=== PATIENT | male | born 1955 | race Caucasian/White ===

== ENCOUNTER 2018-03-19 20:50 | Inpatient (IN) ==
[2018-03-19 21:42] LABS: Basophils % 0.4 % (0.0-0.8); Eosinophils # 0.2 10*3/uL (0.0-0.87); Eosinophils % 2.6 % (0.00-10.9); Hematocrit 38.7 VOL% (42.0-52.0); Hemoglobin 12.8 GM/DL (14.0-18.0); Immature Granulocytes % 0.6 %; Immature Granulocytes Absolute 0.05 #; Lymphocytes # 1.4 10*3/uL (1.4-4.0); Lymphocytes % 15.1 % (21.2-54.2); Mean Corpuscular HGB Conc 33.1 GM/DL (32-36); Mean Corpuscular Hemoglobin 30 PG (27-34); Mean Corpuscular Volume 91.7 FL (87-102); Mean Platelet Volume 11.6 FL (9.6-12.0); Monocytes # 0.9 10*3/uL (0.11-0.8); Monocytes % 10.2 % (1.7-12.7); Neutrophils # 6.4 10*3/uL (1.4-7.4); Neutrophils % 71.1 % (38.7-73.9); Platelet Count 205 T/CUMM (130-400); Red Blood Count 4.22 MC/CUMM (3.8-5.5); Red Cell Distribution Width 13.2 % (9.3-17.3)
[2018-03-19 21:47] LABS: INR 1.1; PT Patient Result 11.3 SECS; Partial Thromboplastin Time 26.4 SECS (0-40)
[2018-03-19 22:01] LABS: Albumin 3.1 G/DL (3.4-5.0); Bilirubin,Total 0.7 MG/DL (0.2-1.0); Calcium 8.3 MG/DL (8.5-10.1); Osmolality,Calculated 282.3 MOS/KG (273-304); Potassium 3.7 MMOL/L (3.5-5.1); Thyroid Stimulating Hormone 4.72 uIU/ml (0.358-3.74); Total Protein 6.7 G/DL (6.4-8.3)
[2018-03-19 22:04] LABS: Troponin I Only 0.06 NG/ML (0.00-0.045)
[2018-03-19] MEDS ORDERED: LEVALBUTEROL 1.25 MG/3 ML NEB RESP TX STA (22:40)
[2018-03-19] MEDS ORDERED: SODIUM CHLORIDE 0.9% 1,000 ML IV STA (22:41)
[2018-03-19] MEDS ORDERED: cefTRIAXone 1,000 MG in SODIUM CHLORIDE 0.9% 100 ML IV STA (22:53)
[2018-03-19] MEDS ORDERED: LEVOFLOXACIN INJ 750 MG in PREMIX 1 EACH IV STA (23:24)
[2018-03-20] MEDS ORDERED: ENOXAPARIN 120 MG/0.8 ML SYRINGE SUBCUT STA (02:06)
[2018-03-20] MEDS ORDERED: ALBUTEROL/IPRATROPIUM 3 ML NEB RESP TX STA (02:13)
[2018-03-20] MEDS ORDERED: DILTIAZEM 100 MG VIAL.ADD IV ONE (02:19)
[2018-03-20] MEDS: DILTIAZEM INJ 100 MG in SODIUM CHLORIDE 0.9% 100 ML IV SCH (02:20)
[2018-03-20] MEDS ORDERED: SODIUM CHLORIDE 0.9% 100 ML IV ONE (02:21)
[2018-03-20] MEDS ORDERED: guaiFENesin/DM ER 600-30 MG TABLET PO PRN (03:21)
[2018-03-20] MEDS ORDERED: ONDANSETRON 4 MG/2 ML VIAL IV PRN (03:21)
[2018-03-20] MEDS ORDERED: ACETAMINOPHEN 325 MG TABLET PO PRN (03:21)
[2018-03-20] MEDS ORDERED: SODIUM CHLORIDE 0.45% 1,000 ML IV SCH (03:30)
[2018-03-20] MEDS ORDERED: DEXTROSE 50% 25 GM/50 ML VIAL IV PRN (05:01)
[2018-03-20] MEDS ORDERED: GLUCAGON 1 MG VIAL IM PRN (05:01)
[2018-03-20] MEDS: AZITHROMYCIN INJ 500 MG in SODIUM CHLORIDE 0.9% 250 ML IV SCH (06:04)
[2018-03-20 07:02] LABS: Basophils % 0.5 % (0.0-0.8); Eosinophils # 0.2 10*3/uL (0.0-0.87); Eosinophils % 2.6 % (0.00-10.9); Hematocrit 38.9 VOL% (42.0-52.0); Hemoglobin 12.7 GM/DL (14.0-18.0); Immature Granulocytes % 0.4 %; Immature Granulocytes Absolute 0.03 #; Lymphocytes # 1.3 10*3/uL (1.4-4.0); Lymphocytes % 16.3 % (21.2-54.2); Mean Corpuscular HGB Conc 32.6 GM/DL (32-36); Mean Corpuscular Hemoglobin 30 PG (27-34); Mean Corpuscular Volume 92.4 FL (87-102); Mean Platelet Volume 11.2 FL (9.6-12.0); Monocytes # 0.8 10*3/uL (0.11-0.8); Monocytes % 10.6 % (1.7-12.7); Neutrophils # 5.4 10*3/uL (1.4-7.4); Neutrophils % 69.6 % (38.7-73.9); Platelet Count 194 T/CUMM (130-400); Red Blood Count 4.21 MC/CUMM (3.8-5.5); Red Cell Distribution Width 13.2 % (9.3-17.3); White Blood Count 7.8 T/CUMM (4-12)
[2018-03-20] MEDS: ALBUTEROL 2.5 MG/3 ML NEB RESP TX SCH ×2 (07:18→12:24)
[2018-03-20] MEDS: IPRATROPIUM 500 MCG/2.5 ML NEB RESP TX SCH ×2 (07:18→12:23)
[2018-03-20] MEDS ORDERED: LORazepam 2 MG/1 ML VIAL IV ONE (07:25)
[2018-03-20] MEDS ORDERED: ALPRAZolam 0.5 MG TABLET PO PRN (07:26)
[2018-03-20 07:31] LABS: Osmolality,Calculated 277.4 MOS/KG (273-304); Potassium 3.6 MMOL/L (3.5-5.1)
[2018-03-20] MEDS: INSULIN LISPRO 100 UNIT/ML SUBCUT SCH ×2 (08:50→21:19)
[2018-03-20] MEDS: LISINOPRIL 10 MG TABLET PO SCH ×2 (08:50→21:21)
[2018-03-20] MEDS: levETIRAcetam 500 MG TABLET PO SCH ×2 (08:51→21:20)
[2018-03-20] MEDS: APIXABAN 5 MG TABLET PO SCH ×2 (08:51→21:21)
[2018-03-20] MEDS: BUDESONIDE/FORMOTEROL 160-4.5 INHALER 6 GM INH SCH ×2 (08:55→21:21)
[2018-03-20] MEDS: FLUTICASONE 50 MCG NASAL SPRAY 16 GM BOTTLE BOTH NARES SCH (08:55)
[2018-03-20] MEDS ORDERED: [UNRECOGNIZED DRUG - OTHER] PO SCH (09:00)
[2018-03-20] MEDS ORDERED: DEXTROSE PO SCH (09:00)
[2018-03-20] MEDS ORDERED: METOPROLOL SUCCINATE XL 50 MG TABLET PO SCH (09:00)
[2018-03-20] MEDS ORDERED: DILTIAZEM INJ 100 MG in SODIUM CHLORIDE 0.9% 100 ML IV SCH (10:30)
[2018-03-20] MEDS ORDERED: FUROSEMIDE 40 MG/4 ML VIAL IV ONE (10:49)
[2018-03-20] MEDS: ASPIRIN EC 81 MG TABLET PO SCH (10:57)
[2018-03-20] MEDS ORDERED: DIGOXIN 0.5 MG/2 ML AMP IV ONE ×2 (12:00→18:00)
[2018-03-20] MEDS: ALBUTEROL/IPRATROPIUM 3 ML NEB RESP TX SCH ×2 (14:12→19:19)
[2018-03-20] MEDS: FUROSEMIDE 40 MG/4 ML VIAL IV SCH (15:54)
[2018-03-20] MEDS ORDERED: ATORVASTATIN 20 MG TABLET PO SCH (21:00)
[2018-03-20] MEDS ORDERED: INSULIN GLARGINE 100 UNIT/ML SUBCUT SCH (21:00)
[2018-03-20] MEDS ORDERED: LATANOPROST 0.005% OPH SOLN 2.5 ML BOTTLE BOTH EYES SCH (21:00)
[2018-03-20] MEDS ORDERED: cefTRIAXone 2,000 MG in SYRINGE 1 EACH IV SCH (23:00)
[2018-03-21] MEDS: DILTIAZEM INJ 100 MG in SODIUM CHLORIDE 0.9% 100 ML IV SCH (05:01)
[2018-03-21] MEDS: AZITHROMYCIN INJ 500 MG in SODIUM CHLORIDE 0.9% 250 ML IV SCH (07:01)
[2018-03-21] MEDS: ALBUTEROL/IPRATROPIUM 3 ML NEB RESP TX SCH ×2 (07:02→10:50)
[2018-03-21] MEDS: FUROSEMIDE 40 MG/4 ML VIAL IV SCH (09:04)
[2018-03-21] MEDS: APIXABAN 5 MG TABLET PO SCH (09:04)
[2018-03-21] MEDS: DIGOXIN 0.125 MG TABLET PO SCH ×2 (09:04→14:02)
[2018-03-21] MEDS: INSULIN LISPRO 100 UNIT/ML SUBCUT SCH (09:04)
[2018-03-21] MEDS: ASPIRIN EC 81 MG TABLET PO SCH (09:04)
[2018-03-21] MEDS: LISINOPRIL 10 MG TABLET PO SCH (09:04)
[2018-03-21] MEDS: BUDESONIDE/FORMOTEROL 160-4.5 INHALER 6 GM INH SCH (09:09)
[2018-03-21] MEDS: FLUTICASONE 50 MCG NASAL SPRAY 16 GM BOTTLE BOTH NARES SCH (09:09)
[2018-03-21] MEDS: levETIRAcetam 500 MG TABLET PO SCH (09:11)
[2018-03-21 10:51] LABS: Calcium 8.5 MG/DL (8.5-10.1); Osmolality,Calculated 276.7 MOS/KG (273-304); Potassium 3.5 MMOL/L (3.5-5.1)
[2018-03-21 12:38] VITALS: BP 88/50
== END 2018-03-21 13:15 | disposition left against medical advice (07) | DRG 308 ==
LOC: N.ED 20:50 → N.EDINP 03-20 03:20 → SUATTDRO 03-20 03:20 → N.TELES 03-20 04:27
PROVIDERS: ADMIT Internal Medicine Infectious Disease; ATTEND Family Medicine